=== PATIENT | male | born 1990 | race African-American/Black ===

== ENCOUNTER 2017-10-26 01:28 | Emergency (ER) | payer SELFPAY ==
[~2017-10-26] VITALS: Ht 182.9 cm; Wt 95.0 kg
[2017-10-26] MEDS ORDERED: SODIUM CHLORIDE 0.9% 1,000 ML IV ONE (02:14)
[2017-10-26] MEDS ORDERED: LORAZEPAM 2MG/ML CPJ IV ONE (02:15)
[2017-10-26 02:20] VITALS: BP 151/107
[2017-10-26 02:59] LABS: PROTHROMBIN TIME 10.6 sec (9.4-11.6)
[2017-10-26 03:09] LABS: BASOPHILS % 0.5 % (0.0-2.0); EOSINOPHILS % 0.1 % (0.0-5.0); HEMATOCRIT. 41.9 % (42.0-52.0); HEMOGLOBIN. 14.2 g/dL (14.0-18.0); LYMPHOCYTES % 27.5 % (20.0-50.0); MEAN CORPUSCULAR HEMOGLOBIN 30.1 pg (28.0-32.0); MEAN CORPUSCULAR VOLUME 88.8 fL (80.0-94.0); MONOCYTES % 5.5 % (2.0-8.0); NEUTROPHILS % 66.4 % (40.0-76.0); PLATELET 250 x1000/uL (130-400); RED BLOOD CELL COUNT 4.72 mill/uL (4.7-6.1)
[2017-10-26 03:12] LABS: AMMONIA 33 uMol/L (<32)
[2017-10-26 03:14] LABS: CHLORIDE 101 mEq/L (98-107); CREATINE KINASE 207 IU/L (39-308); ETHANOL BLOOD 14 mg/dL
[2017-10-26 03:17] LABS: CARBAMAZEPINE < 0.5 ug/mL (4-12); PHENOBARBITAL < 2.1 ug/mL (15.0-40.0); VALPROIC ACID < 3.0 ug/mL (50-100)
[2017-10-26 04:17] LABS: *AMPHETAMINES SCREEN URINE NEGATIVE (NEGATIVE); *BARBITURATES SCREEN URINE NEGATIVE (NEGATIVE); *BENZODIAZEPINES SCREEN URINE PRESUMTIVE POSITIVE (NEGATIVE); *COCAINE SCREEN URINE NEGATIVE (NEGATIVE); CANNABINOID URINE SCREEN PRESUMTIVE POSITIVE (NEGATIVE); METHADONE URINE SCREEN NEGATIVE (NEGATIVE); OPIATES URINE SCREEN NEGATIVE (NEGATIVE); PHENCYCLIDINE URINE SCREEN NEGATIVE (NEGATIVE)
[2017-10-26] MEDS ORDERED: LACTULOSE 20G/30ML UDC PO ONE (04:30)
[2017-10-26] MEDS ORDERED: SODIUM CHLORIDE 0.9% 1000ML BAG (SEPSIS BOLUS) IV ONE (04:30)
== END 2017-10-26 03:38 | disposition left against medical advice (07) ==
LOC: ER 01:28
DX: G40.909 Epilepsy, unspecified, not intractable, without status epilepticus (principal); E72.20 Disorder of urea cycle metabolism, unspecified; E87.2 Acidosis; F10.10 Alcohol abuse, uncomplicated; R79.1 Abnormal coagulation profile; Z59.0 Homelessness
CPT/HCPCS: 36415; 71045; 80053; 80156; 80165; 80184; 80185; 80305; 82140; 82550; 83605; 84484; 85025; 85610; 93005; 96361; 96374; 99291; G0482; J2060; J7030; Z7610